=== PATIENT | female | born 1950 | race Two or more races ===

== ENCOUNTER 2022-04-04 13:36 | Inpatient (IN) | payer OTHER ==
[~2022-04-04] VITALS: Ht 152.4 cm; Wt 86.2 kg
[2022-04-04] MEDS ORDERED: SYNTHROID50 MCG PO (14:09)
[2022-04-04] MEDS ORDERED: HYZAAR 50-12.51 EACH PO (14:09)
--- NOTE | 2022-04-04 14:10 | NUR ---
SE RECIBE FEMINA ALERTA Y ORIENTADA X3 QUIEN REFIERE DOLOR EBDOMINAL POR DIVERTICULITIS. VERBALIZA QUE CALISTA PRESENTO DIARREAS CON ADRIENNE. SE UBICA EN PASILLO PEND A EVALUACION MEDICA.
--- NOTE | 2022-04-04 15:38 | NUR ---
RN IJEOMA ORIENTA A PTE SOBRE TRATAMIENTO E INSTRUCCIONES A SEGUIR, MIHIR REFIERE ENTENDER. SE LE COLECTA MUESTRAS, SE CANALIZA Y LE ADMINISTRA MEDICAMENTO JASSI ORDEN MEDICA. PENDIENTE CT, MUESTRAS DE ESCRETA Y U/A
== END 2022-04-09 23:16 | disposition home or self-care (01) | DRG 390 ==
LOC: ER 13:36 → SURG 19:20 → SURH 19:20 → SURG 20:07 → SURH 04-05 11:57
PROVIDERS: ADMIT Specialist; ATTEND Specialist
PROC: 0D9670Z Drainage of Stomach with Drainage Device, Via Natural or Artificial Opening (ICD-10-PCS; principal; 2022-04-04)
PROC: 3E0336Z Introduction of Nutritional Substance into Peripheral Vein, Percutaneous Approach (ICD-10-PCS; 2022-04-04)
PROC: BW21ZZZ Computerized Tomography (CT Scan) of Abdomen and Pelvis (ICD-10-PCS; 2022-04-04)
PROC: 3E0F7SF Introduction of Other Gas into Respiratory Tract, Via Natural or Artificial Opening (ICD-10-PCS; 2022-04-04)
DX: K56.699 Other intestinal obstruction unspecified as to partial versus complete obstruction (principal); I10 Essential (primary) hypertension; E03.9 Hypothyroidism, unspecified; D72.829 Elevated white blood cell count, unspecified